=== PATIENT | female | born 1965 ===

== ENCOUNTER 2018-12-27 15:34 | Emergency (ER) | payer OTHER ==
[~2018-12-27] VITALS: Wt 68.0 kg
[2018-12-27 15:45] VITALS: BP 130/74; PULSE 88; RESP 18
[2018-12-27] MEDS ORDERED: ACET-141 PO (17:15)
[2018-12-27] MEDS ORDERED: ACETAMINOPHEN 325 MG TAB PO ONE (17:30)
[2018-12-27] MEDS ORDERED: METH750T93 PO (17:44)
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
== END 2018-12-27 18:08 | disposition home or self-care (01) ==
LOC: FTE 15:34
DX: S16.1XXA Strain of muscle, fascia and tendon at neck level, initial encounter (principal); V89.2XXA Person injured in unspecified motor-vehicle accident, traffic, initial encounter
CPT/HCPCS: Z7502; Z7610; 99282